=== PATIENT | male | born 1985 | race Caucasian/White ===

== ENCOUNTER → 2016-10-06 | Outpatient (CLI) | payer OTHER ==
--- NOTE | 2016-10-06 15:21 | MR ---
EXAMINATION TYPE: MR lumbar spine wo con DATE OF EXAM: 10/06/2016 2:10 PM COMPARISON: NONE HISTORY: Back pain, neck pain TECHNIQUE: T1 and T2 axial and sagittal images of the lumbar spine are submitted. FINDINGS: There is no abnormal signal seen within the visualized spinal cord or paraspinal soft tissu es. Simple appearing right renal cyst. At L1-2 there is no disc herniation or canal stenosis. No foraminal encroachment. At L2-3 there is no disc herniation or canal stenosis. No foraminal encroachment. Facet arthropathy n oted. At L3-4 there is facet arthropathy. Vertebral body hemangioma L4 noted. No disc herniation or canal s tenosis. At L4-5 there is mild degenerative disc disease. There is circumferential disc bulging. Mild facet ar thropathy is seen. There is a more focal central disc protrusion resulting in mild to moderate canal stenosis and bilateral mild foraminal encroachment. At L5-S1 there is a central and left paracentral disc bulge or small broad-based protrusion. Mild lef t foraminal encroachment. No Canal stenosis. IMPRESSION: 1. Disc bulging with more focal central disc protrusion L4-L5 with bilateral foraminal encroachment a nd mild to moderate canal stenosis. 2. Central left paracentral broad-based disc bulge or small protrusion with mild left foraminal encro achment L5-S1. 3. Multilevel facet arthropathy. EXAMINATION TYPE: MR cervical spine wo con DATE OF EXAM: 10/06/2016 2:10 PM COMPARISON: NONE HISTORY: Back pain, neck pain TECHNIQUE: T1 sagittal and coronal, T2 sagittal, and gradient echo axial views of the cervical spine are submitted. FINDINGS: The cranial cervical junction is preserved. There is no abnormal signal seen within the sp inal cord or paraspinal soft tissues. At C2-3 there is no disc herniation or canal stenosis. No foraminal encroachment. At C3-4 there is mild disc desiccation. There is mild uncovertebral joint hypertrophy bilaterally. Mi ld right-sided foraminal encroachment. No focal herniation or canal stenosis. At C4-5 there is mild disc desiccation with mild uncovertebral joint hypertrophy. Findings greater on the right with mild bilateral foraminal encroachment. At C5-6 there is mild disc desiccation. No foraminal encroachment or canal stenosis. Mild facet hyper trophy. Neural foramina widely patent. At C6-7 there is no disc herniation or canal stenosis. No foraminal encroachment. At C7-T1 there is no disc herniation or canal stenosis. No foraminal encroachment. IMPRESSION: 1. Mild disc desiccation level C3-C6 with uncovertebral joint hypertrophy at these levels. Foraminal encroachment as discussed above.
--- NOTE | 2016-10-07 11:37 | MR ---
MRI of the brain with and without contrast HISTORY: Amnesia TECHNIQUE: T1-weighted sagittal, T2, FLAIR, and diffusion axial, postcontrast T1 axi al and coronal views of the brain are submitted. CONTRAST: 20 mL MultiHance FINDINGS: There is no evidence of acute ischemia. The ventricles, basal cisterns, and sulci overlying the co nvexities are consistent with the patient's age. There is no mass effect or enhancing mass. Craniocervical junction maintained. Sella turcica has a normal appearance. No evidence of cerebellopo ntine angle mass. Changes of moderate chronic sinusitis noted. Mild bilateral chronic appearing mastoiditis. WHITE MATTER: No sizable areas of abnormal signal. IMPRESSION: 1. No acute intracranial process. 2. Chronic mastoiditis and sinusitis.
== END | disposition home or self-care (01) ==
LOC: RADMRIMAIN 12:45
PROVIDERS: ATTEND Psychiatry & Neurology Pain Medicine
DX: H70.10 Chronic mastoiditis, unspecified ear (principal); J32.9 Chronic sinusitis, unspecified; M51.26 Other intervertebral disc displacement, lumbar region; M51.27 Other intervertebral disc displacement, lumbosacral region; M12.88 Other specific arthropathies, not elsewhere classified, other specified site; M50.30 Other cervical disc degeneration, unspecified cervical region; R41.3 Other amnesia; M54.2 Cervicalgia; M54.5 Low back pain; M48.06 Spinal stenosis, lumbar region
CPT/HCPCS: 70553; 72141; 72148; A9577

== ENCOUNTER 2017-02-18 19:19 | Emergency (ER) | payer OTHER ==
[2017-02-18 19:27] VITALS: RESP 18
--- NOTE | 2017-02-18 19:45 | ED ---
General Adult HPI - General Chief complaint: Allergic Reaction Stated complaint: med reaction/hives Time Seen by Provider: 02/18/17 19:43 Source: patient, RN notes reviewed, old records reviewed Mode of arrival: ambulatory Limitations: no limitations - History of Present Illness Initial comments: This is a 31-year-old male to the ER for medication reaction. By suicidal thoughts. Patient states he has had some is antipsychotic medications. We'll although they are improving. Patient does admit to wanting to counseled, denies drugs or alcohol abuse. No recent change in life stressors. Patient has been the ER before for psychiatric symptoms - Related Data Home Medications Medication Instructions Recorded Confirmed ALPRAZolam 1 mg PO QID 06/29/16 02/18/17 traZODone HCL [Desyrel] 100 mg PO HS 06/29/16 02/18/17 Albuterol Inhaler [Ventolin Hfa 1 - 2 puff INHALATION RT-Q6H PRN 02/18/17 Inhaler] Butalb/APAP/Caff 50-325-40Mg 1 tab PO BID 02/18/17 02/18/17 [Fioricet 50-325-40] Dextroamphetamine/Amphetamine 10 mg PO DAILY@1700 02/18/17 02/18/17 [Adderall] Dextroamphetamine/Amphetamine 20 mg PO BID@0800,1300 02/18/17 02/18/17 [Adderall] HYDROcodone/APAP 10-325MG [[place] 1 tab PO BID 02/18/17 02/18/17 10-325] Naproxen 500 mg PO BID 02/18/17 02/18/17 Omeprazole [PriLOSEC] 40 mg PO W/SUPPER 02/18/17 02/18/17 Sertraline [Zoloft] 200 mg PO QAM 02/18/17 02/18/17 Topiramate [Topamax] 25 mg PO BID 02/18/17 02/18/17 lamoTRIgine [LaMICtal] 25 mg PO HS 02/18/17 02/18/17 tiZANidine [Zanaflex] 4 mg PO QID 02/18/17 02/18/17 Allergies Allergy/AdvReac Type Severity Reaction Status Date / Time cefaclor [From [facility]] Allergy Rash/Hives Verified 02/18/17 20:41 aripiprazole [From Abilify] AdvReac Suicidal Verified 02/18/17 20:41 Ideation citalopram AdvReac Suicidal Verified 02/18/17 20:41 Ideation risperidone [From Risperdal] AdvReac Suicidal Verified 02/18/17 20:41 Ideation tramadol AdvReac Nausea & Verified 02/18/17 20:41 Vomiting Review of Systems ROS Statement: Those systems with pertinent positive or pertinent negative responses have been documented in the HPI. ROS Other: All systems not noted in ROS Statement are negative. Past Medical History Past Medical History: Asthma Additional Past Medical History / Comment(s): seasonal allergies History of Any Multi-Drug Resistant Organisms: None Reported Past Surgical History: No Surgical Hx Reported Past Psychological History: ADD/ADHD, Anxiety, Bipolar, Depression Smoking Status: Current every day smoker Past Alcohol Use History: Rare Past Drug Use History: Marijuana General Exam - General Exam Comments Initial Comments: Patient with contact dermatitis type rash, possible medication reaction rash to right leg left arm Limitations: no limitations General appearance: alert, in no apparent distress Head exam: Present: atraumatic, normocephalic, normal inspection Eye exam: Present: normal appearance, PERRL, EOMI. Absent: scleral icterus, conjunctival injection, periorbital swelling ENT exam: Present: normal exam, mucous membranes moist Neck exam: Present: normal inspection. Absent: tenderness, meningismus, lymphadenopathy Respiratory exam: Present: normal lung sounds bilaterally. Absent: respiratory distress, wheezes, rales, rhonchi, stridor Cardiovascular Exam: Present: regular rate, normal rhythm, normal heart sounds. Absent: systolic murmur, diastolic murmur, rubs, gallop, clicks GI/Abdominal exam: Present: soft, normal bowel sounds. Absent: distended, tenderness, guarding, rebound, rigid Extremities exam: Present: normal inspection, full ROM, normal capillary refill. Absent: tenderness, pedal edema, joint swelling, calf tenderness Back exam: Present: normal inspection Neurological exam: Present: alert, oriented X3, CN II-XII intact Psychiatric exam: Present: normal affect, normal mood Skin exam: Present: warm, dry, intact, normal color. Absent: rash Course Vital Signs 02/18/17 19:25 Temperature 98.5 F Pulse Rate 88 Respiratory 18 Rate Blood Pressure 124/89 O2 Sat by Pulse 97 Oximetry - Reevaluation(s) Reevaluation #1: 02/18/17 19:45 medically clear for pschiaric eval Medical Decision Making - Medical Decision Making 30 no [place] for evaluation of suicidal thoughts as well as likely adverse reaction to drug. Patient will be given antihistamines, steroid, follow-up with doctor in the morning for possible change of medication Disposition Clinical Impression: Allergic reaction, Adverse reaction to drug Disposition: HOME SELF-CARE Condition: Good Instructions: Lamotrigine (By mouth), Urticaria (ED) Referrals: Leana Arteaga MD [Primary Care Provider] - 1-2 days
[2017-02-18] MEDS ORDERED: FAMOTIDINE 20 MG TAB PO STA (22:30)
[2017-02-18] MEDS ORDERED: diphenhydrAMINE 50 MG CAP PO STA (22:30)
[2017-02-18] MEDS ORDERED: predniSONE 20 MG TAB PO STA (22:30)
[2017-02-18 22:43] VITALS: BP 124/71; PULSE 86; TEMP 98.2
== END 2017-02-18 22:43 | disposition home or self-care (01) ==
LOC: EC 19:19
DX: T43.505A Adverse effect of unspecified antipsychotics and neuroleptics, initial encounter (principal); R21 Rash and other nonspecific skin eruption; R45.851 Suicidal ideations; F31.9 Bipolar disorder, unspecified; F41.9 Anxiety disorder, unspecified; F90.9 Attention-deficit hyperactivity disorder, unspecified type; F17.200 Nicotine dependence, unspecified, uncomplicated; Z79.1 Long term (current) use of non-steroidal anti-inflammatories (NSAID); Z79.891 Long term (current) use of opiate analgesic; Z79.899 Other long term (current) drug therapy; Z88.1 Allergy status to other antibiotic agents; Z88.5 Allergy status to narcotic agent; Z88.8 Allergy status to other drugs, medicaments and biological substances
CPT/HCPCS: 82075; 99284; J7512

== ENCOUNTER → 2017-02-22 | Outpatient (CLI) | payer OTHER ==
--- NOTE | 2017-02-22 23:24 | MR ---
EXAMINATION TYPE: MR shoulder LT wo con DATE OF EXAM: 02/22/2017 COMPARISON: NONE HISTORY: Pain and Limited ROM in Left Shoulder TECHNIQUE: Multiplanar, multisequence imaging of the left shoulder is performed without contrast. FINDINGS: The subscapularis tendon is intact. Biceps tendon is intact. Glenoid elsa appear normal. I see no fr acture. There is very slight increased signal in the supraspinatus tendon near the insertion on the g reater tuberosity of the humerus. The AC joint shows hypertrophic spurring without significant subacr omial impingement. I see no fracture. There is no evidence of focal bone destruction. IMPRESSION: There is evidence for minimal signal changes in the supraspinatus tendon consistent with mild focal t endinitis. There is no evidence of a full-thickness rotator cuff tear. 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
== END | disposition home or self-care (01) ==
LOC: RADMRIMAIN 20:20
PROVIDERS: ATTEND Psychiatry & Neurology Pain Medicine
DX: M19.012 Primary osteoarthritis, left shoulder (principal); Z88.1 Allergy status to other antibiotic agents; Z88.6 Allergy status to analgesic agent; Z88.8 Allergy status to other drugs, medicaments and biological substances